=== PATIENT | female | born 1995 | race African-American/Black ===

== ENCOUNTER 2016-06-27 11:02 | Emergency (ER) | payer MEDICAID ==
[~2016-06-27] VITALS: Ht 165.1 cm; Wt 50.0 kg
[2016-06-27 12:33] LABS: CLARITY URINE TURBID (CLEAR); COLOR URINE YELLOW (YELLOW); GLUCOSE URINE NEGATIVE (NEGATIVE); KETONES URINE TRACE (NEGATIVE); LEUKOCYTE ESTERASE URINE 1+ (NEGATIVE); NITRITE URINE POSITIVE (NEGATIVE); OCCULT BLOOD URINE 1+ (NEGATIVE); PROTEIN URINE 3+ (NEGATIVE); SPECIFIC GRAVITY URINE 1.032 (1.005-1.030)
[2016-06-27 12:45] LABS: WBC URINE 25-50 /hpf (0-2)
[2016-06-27] MEDS ORDERED: IBUPROFEN 600MG TABLET PO ONE (12:45)
[2016-06-27 12:46] LABS: BACTERIA URINE 4+; MUCUS URINE 2+ /lpf (< = 2+); SQUAMOUS EPITHELIAL CELL URINE 3+ /lpf (RARE/1+)
[2016-06-27] MEDS ORDERED: HYDROCODONE/ACETAMINOPHEN 5/325MG TABLET PO ONE (14:00)
[2016-06-27 14:19] LABS: CHLORIDE 104 mEq/L (98-107); INDEX HEMOLYSI 1 (1-3); INDEX ICTERIC 1 (1-4); INDEX LIPEMIC 1 (1-3)
[2016-06-27 14:28] LABS: ALANINE AMINOTRANSFERASE 20 IU/L (13-61); ANION GAP 12; CALCIUM 9.4 mg/dL (8.5-10.1); CARBON DIOXIDE 26 mEq/L (21-32); UREA NITROGEN BLOOD 16 mg/dL (7-21); eGFR > 60 mL/min (>60)
[2016-06-27 14:33] VITALS: BP 120/86
[2016-06-27] MEDS ORDERED: CEFTRIAXONE SODIUM 250 MG/VIAL IM ONE (15:15)
[2016-06-27] MEDS ORDERED: METRONIDAZOLE 500MG TABLET PO ONE (15:15)
[2016-06-27] MEDS ORDERED: VALACYCLOVIR HCL 500MG TABLET PO ONE (15:15)
[2016-06-27] MEDS ORDERED: AZITHROMYCIN 500 MG TABLET PO ONE (15:15)
== END 2016-06-27 16:28 | disposition home or self-care (01) ==
LOC: ER 13:02
DX: B00.9 Herpesviral infection, unspecified (principal); N76.0 Acute vaginitis; N39.0 Urinary tract infection, site not specified; R03.0 Elevated blood-pressure reading, without diagnosis of hypertension
CPT/HCPCS: 36415; 80053; 81001; 87210; 99284; J0696